=== PATIENT | female | born 1975 | race Caucasian/White ===

== ENCOUNTER 2016-11-27 21:53 | Emergency (ER) | payer MEDICAID ==
[2016-11-27 22:03] VITALS: BP 129/85; PULSE 67; RESP 16; TEMP 97.9; O2SAT 97
[2016-11-27] MEDS ORDERED: BACITRACIN OINTMENT 1 PACKET TP ONE (22:10)
--- NOTE | 2016-11-27 22:10 | EDPHY ---
H & P Stated Complaint: FB in base of right great toe Time Seen by Provider: 11/27/16 22:00 HPI/ROS: CHIEF COMPLAINT: Splinter HISTORY OF PRESENT ILLNESS: Patient is a 41-year-old female who comes to the emergency department complaining of a splinter that she got in her right foot while walking barefoot at work. She rubbed her foot on the carpet and something poked into her foot. She denies other injuries. REVIEW OF SYSTEMS: Constitutional: denies: chills, fever, recent illness, recent injury EENTM: denies: blurred vision, double vision, nose congestion Respiratory: denies: cough, shortness of breath Cardiac: denies: chest pain, irregular heart rate, lightheadedness, palpitations Gastrointestinal/Abdominal: denies: abdominal pain, diarrhea, nausea, vomiting, blood streaked stools Genitourinary: denies: dysuria, frequency, hematuria, pain Musculoskeletal: denies: joint pain, muscle pain Skin: See HPI Neurological: denies: headache, numbness, paresthesia, tingling, dizziness, weakness Hematologic/Lymphatic: denies: blood clots, easy bleeding, easy bruising Immunologic/allergic: denies: HIV/AIDS, transplant EXAM: GENERAL: Well-appearing, well-nourished and in no acute distress. HEAD: Atraumatic, normocephalic. EYES: Pupils equal round and reactive to light, extraocular movements intact, sclera anicteric, conjunctiva are normal. ENT: TMs normal, nares patent, oropharynx clear without exudates. Moist mucous membranes. NECK: Normal range of motion, supple without lymphadenopathy or JVD. LUNGS: Breath sounds clear to auscultation bilaterally and equal. No wheezes rales or rhonchi. HEART: Regular rate and rhythm without murmurs, rubs or gallops. ABDOMEN: Soft, nontender, normoactive bowel sounds. No guarding, no rebound. No masses appreciated. BACK: No CVA tenderness, no spinal tenderness, step-offs or deformities EXTREMITIES: Normal range of motion, no pitting or edema. No clubbing or cyanosis. NEUROLOGICAL: Cranial nerves II through XII grossly intact. Normal speech, normal gait. 5/5 strength, normal movement in all extremities, normal sensation PSYCH: Normal mood, normal affect. SKIN: Small splinter over the ball of right foot great toe. Source: Patient Exam Limitations: No limitations - Personal History LMP (Females 10-55): 8-14 Days Ago Tetanus Vaccine Date: 2014 - Medical/Surgical History Hx Asthma: No Hx Chronic Respiratory Disease: No Hx Diabetes: No Hx Cardiac Disease: No Hx Renal Disease: No Hx Cirrhosis: No Hx Alcoholism: No Hx HIV/AIDS: No Hx Splenectomy or Spleen Trauma: No Other PMH: med hx-cutaneous b cell lymphoma, anxiety - Family History Significant Family History: No pertinent family hx - Social History Smoking Status: Never smoked Alcohol Use: Sober Drug Use: None Constitutional: Initial Vital Signs Temperature (C) 36.6 C 11/27/16 22:00 Heart Rate 67 11/27/16 22:00 Respiratory Rate 16 11/27/16 22:00 Blood Pressure 129/85 H 11/27/16 22:00 O2 Sat (%) 97 11/27/16 22:00 O2 Delivery Mode Room Air Allergies/Adverse Reactions: metronidazole [From Metrogel Vaginal] Allergy (Severe, Verified 06/02/16 22:46) Anaphylaxis codeine [Codeine] Allergy (Intermediate, Verified 06/02/16 22:46) Hives aspirin Allergy (Mild, Verified 06/02/16 22:46) Rash Sulfa (Sulfonamide Antibiotics) Allergy (Mild, Verified 06/02/16 22:46) Rash cephalexin monohydrate [From Keflex] Allergy (Unknown, Verified 06/02/16 22:46) Penicillins Allergy (Unknown, Verified 06/02/16 22:46) Home Medications: Medication Instructions Recorded Hydrocortisone 2.5% 1 alex TP BID #50 ml 11/27/16 [Hydrocortisone 2.5% cream (*)] Medical Decision Making Procedures: Splinter removal: Patient refused local anesthesia. Her splinter was then removed with splinter forceps and an 18 gauge needle. She tolerated the procedure well. ED Course/Re-evaluation: Patient had a splinter that was successfully removed. Was then dressed with bacitracin and sterile bandages. Discussed further care. She is also requesting hydrocortisone 2% cream for her itchy skin. Differential Diagnosis: Partial list of the Differential diagnosis considered include but were not limited to; splinter, foreign body, infection and although unlikely based on the history and physical exam, I also considered trauma. I discussed these differential diagnoses and the plan with the patient as well as the usual and expected course. The patient understands that the diagnosis is provisional and that in medicine we are not always correct and that further workup is often warranted. Usual and customary warnings were given. All of the patient's questions were answered. The patient was instructed to return to the emergency department should the symptoms at all worsen or return, otherwise to followup with the physician as we discussed. Departure - Departure Disposition: Home, Routine, Self-Care Clinical Impression: Splinter in skin Condition: Fair Instructions: Soft Tissue Foreign Body (ED) Referrals: Glenys Chadwick DO [Primary Care Provider] - As per Instructions Prescriptions: Hydrocortisone 2.5% [Hydrocortisone 2.5% cream (*)] 1 alex TP BID #50 ml
== END 2016-11-27 22:19 | disposition home or self-care (01) ==
LOC: CED 21:53
DX: S90.851A Superficial foreign body, right foot, initial encounter (principal); W45.8XXA Other foreign body or object entering through skin, initial encounter; Y99.8 Other external cause status; Y93.01 Activity, walking, marching and hiking

== ENCOUNTER 2017-04-14 07:36 | Emergency (ER) | payer MEDICAID ==
[2017-04-14 07:45] VITALS: BP 129/78; PULSE 80; RESP 14; TEMP 98.6; O2SAT 97
--- NOTE | 2017-04-14 08:01 | EDPHY ---
H & P Stated Complaint: "pinching" abd pain since this am; off and on x wks; mild nausea Time Seen by Provider: 04/14/17 07:45 HPI/ROS: Chief Complaint: Abdominal pain HPI: 41-year-old woman woke this morning with 8/10 epigastric abdominal pain she has been having similar episodes for the past couple months occasionally. Patient states she went to the bathroom and passed gas and the pain resolved. Denies any nausea or vomiting. No fevers or chills. No urinary urgency or frequency. Does have a diagnosis of irritable bowel disease in the past. She has been trying to eliminate gluten from her diet. Currently states that she feels normal is without complaint. Last menstrual period was 1 week ago. She is . Has had a tubal ligation but no other abdominal surgeries. She did try to call her primary care doctor's office but they will be able to get her in for a few days. ROS: 10 point Review of Systems is negative except as noted in the HPI. PMH: Denies Social History: Occasional smoking, no alcohol, no recreational drug use Family History: non-contributory Physical Exam: Gen: Awake, Alert, No Distress HEENT: Ears: Normal Nose: no rhinorrhea Eyes: PERRLA, EOMI Mouth: Moist mucosa Neck: Supple, no JVD Chest: nontender, lungs clear to auscultation Heart: S1, S2 normal, no murmur Abd: Soft, non-tender, no guarding Back: no CVA tenderness, no midline tenderness Ext: no edema, non-tender Skin: no rash Neuro: CN II-XII intact, Sensation grossly intact, Strength 5/5 in bilateral upper and lower extremities - Personal History LMP (Females 10-55): 8-14 Days Ago Current Tetanus/Diphtheria Vaccine: Yes Tetanus Vaccine Date: 2014 - Medical/Surgical History Hx Asthma: No Hx Chronic Respiratory Disease: No Hx Diabetes: No Hx Cardiac Disease: No Hx Renal Disease: No Hx Cirrhosis: No Hx Alcoholism: No Hx HIV/AIDS: No Hx Splenectomy or Spleen Trauma: No Other PMH: med hx-cutaneous b cell lymphoma, anxiety - Social History Smoking Status: Never smoked Constitutional: Initial Vital Signs Temperature (C) 37 C 04/14/17 07:41 Heart Rate 80 04/14/17 07:41 Respiratory Rate 14 04/14/17 07:41 Blood Pressure 129/78 H 04/14/17 07:41 O2 Sat (%) 97 04/14/17 07:41 O2 Delivery Mode Room Air Allergies/Adverse Reactions: metronidazole [From Metrogel Vaginal] Allergy (Severe, Verified 04/14/17 07:46) Anaphylaxis codeine [Codeine] Allergy (Intermediate, Verified 04/14/17 07:46) Hives Sulfa (Sulfonamide Antibiotics) Allergy (Mild, Verified 04/14/17 07:46) Rash cephalexin monohydrate [From Keflex] Allergy (Unknown, Verified 04/14/17 07:46) Penicillins Allergy (Unknown, Verified 04/14/17 07:46) Home Medications: Medication Instructions Recorded NK [No Known Home Meds] 04/14/17 Medical Decision Making ED Course/Re-evaluation: 41-year-old with a brief episode of abdominal pain this morning. This resolved after she passed flatus. She has a soft benign abdomen at this time. She does not have any symptoms suggestive of pancreatitis, gallbladder disease, appendicitis, obstruction, or urinary tract infection. She is otherwise very well appearing. I do not feel that there is any imaging or laboratory tests indicated at this time. I have recommended that she follow up with primary care physician for further evaluation and 2-3 days. She will return should her pain come back. Departure - Departure Disposition: Home, Routine, Self-Care Clinical Impression: Abdominal pain Condition: Good Instructions: Gas and Bloating (ED), Abdominal Pain (ED) Additional Instructions: Follow up with primary care physician in 2-3 days for further evaluation. Return to the emergency depart for increasing abdominal pain, uncontrolled nausea vomiting, fevers, chills, or any other concerns. Referrals: [facility] [Other] - As per Instructions
== END 2017-04-14 08:05 | disposition home or self-care (01) ==
LOC: CED 07:36
DX: R10.9 Unspecified abdominal pain (principal)

== ENCOUNTER 2017-07-31 01:46 | Emergency (ER) | payer MEDICAID ==
[2017-07-31 02:00] VITALS: RESP 18
[2017-07-31] MEDS ORDERED: NS 1,000 ML IV ONE (02:11)
[2017-07-31] MEDS ORDERED: LORazepam 2 MG/ML INJ IVP ONE (02:12)
--- NOTE | 2017-07-31 02:17 | EDPHY ---
H & P Stated Complaint: Rapid Heart Rate/Poss Anxiety HPI/ROS: HPI CHIEF COMPLAINT: Anxiety, palpitations HISTORY OF PRESENT ILLNESS: This patient 41-year-old female she does have significant past medical history for B-cell lymphoma, additionally has a history of anxiety she presents emergency room at 2:15 a.m. In the morning with palpitations and anxiety. Patient reports she was trying to go to bed at 1:30 a.m. In the morning while brushing her teeth all the sudden she felt palpitations and lightheadedness. Denies chest pain or chest pressure. Denies she pleuritic pain. Denies vomiting nausea or diarrhea. Denies recent illness. She reports to me additionally that she felt lightheaded at lunch yesterday. She reports that she was eating lunch a and felt her heart racing with palpitations. At that time she felt lightheaded this lasted 5 min. She states she then burp and all of her symptoms went away. Currently arriving in the emergency room her vitals are stable. Blood pressure 120/73 HR 64, pulse ox 100% on room air. Past Medical History: B-cell lymphoma, anxiety Past Surgical History: Denies any recent surgery Social History: Denies daily use of drugs alcohol tobacco. Denies being on control. Family History: Noncontributory ROS REVIEW OF SYSTEMS: A comprehensive 10 point review of systems is otherwise negative aside from elements mentioned in the history of present illness. Exam Constitutional appears well nontoxic slightly anxious, triage nursing summary reviewed, vital signs reviewed, awake/alert. Eyes normal conjunctivae and sclera, EOMI, PERRLA. HENT normal inspection, atraumatic, moist mucus membranes, no epistaxis, neck supple/ no meningismus, no raccoon eyes. Respiratory clear to auscultation bilaterally, normal breath sounds, no respiratory distress, no wheezing. Cardiovascular rate normal, regular rhythm, no murmur, no edema, distal pulses normal. Gastrointestinal soft, non-tender, no rebound, no guarding, normal bowel sounds, no distension, no pulsatile mass. Genitourinary no CVA tenderness. Musculoskeletal no midline vertebral tenderness, full range of motion, no calf swelling, no tenderness of extremities, no meningismus, good pulses, neurovascularly intact. Skin pink, warm, & dry, no rash, skin atraumatic. Neurologic awake, alert and oriented x 3, AAOx3, moves all 4 extremities equally, motor intact, sensory intact, CN II-XII intact, normal cerebellar, normal vision, normal speech. Psychiatric somewhat anxious, normal mood/affect. Heme/Lymph/Immune no lymphadenopathy. Differential Diagnosis: Includes but is not limited to in a particular order acute anxiety, panic attack, electrolyte disturbance, thyroid problem, cardiac arrhythmia Medical Decision Making: Plan for this patient IV establishment blood draw, obtain EKG, check TSH, troponin, D-dimer, IV fluids 1 L normal saline, IV Ativan 1 mg for anxiety and re-evaluate. Re-evaluation: EKG interpretation by me on record in [facility] system. Impression time of EKG 2:16 a.m., this is sinus rhythm rate of 65 T-wave abnormality seen in V1 V2 otherwise no ST elevation no significant ST depression. Otherwise unremarkable EKG. Similar to previous EK04/27/16 0348: Patient re-evaluated is resting comfortably. She feels better after p.o. Ativan. Denies any chest pain or chest pressure shortness of breath or palpitations. She feels much better. She would like to go home. Patient states that she follow up with primary care doctor. Additionally I recommend she follows up with Cardiology for Holter monitor for palpitations. Additionally return precautions discussed with her she understands return emergency room if develops worsening abdominal pain fever chest pain shortness of breath palpitations questions or concerns. Source: Patient - Personal History LMP (Females 10-55): 15-21 Days Ago Current Tetanus/Diphtheria Vaccine: Yes Current Tetanus Diphtheria and Acellular Pertussis (TDAP): Yes Tetanus Vaccine Date: 2014 - Medical/Surgical History Hx Asthma: No Hx Chronic Respiratory Disease: No Hx Diabetes: No Hx Cardiac Disease: No Hx Renal Disease: No Hx Cirrhosis: No Hx Alcoholism: No Hx HIV/AIDS: No Hx Splenectomy or Spleen Trauma: No Other PMH: med hx-cutaneous b cell lymphoma, anxiety - Social History Smoking Status: Former smoker Constitutional: Initial Vital Signs Heart Rate 71 07/31/17 01:57 Respiratory Rate 18 07/31/17 01:57 Blood Pressure 128/84 H 07/31/17 01:57 O2 Sat (%) 99 07/31/17 01:57 O2 Delivery Mode Room Air Allergies/Adverse Reactions: metronidazole [From Metrogel Vaginal] Allergy (Severe, Verified 07/31/17 02:01) Anaphylaxis codeine [Codeine] Allergy (Intermediate, Verified 07/31/17 02:01) Hives Sulfa (Sulfonamide Antibiotics) Allergy (Mild, Verified 07/31/17 02:01) Rash cephalexin monohydrate [From Keflex] Allergy (Unknown, Verified 07/31/17 02:01) Penicillins Allergy (Unknown, Verified 07/31/17 02:01) Home Medications: Medication Instructions Recorded NK [No Known Home Meds] 04/14/17 Medical Decision Making - Data Points Laboratory Results: Laboratory Results 07/31/17 02:30 07/31/17 02:30 07/31/17 07/31/17 07/31/17 02:30 02:30 02:30 WBC RBC Hgb Hct MCV MCH MCHC RDW Plt Count MPV Neut % (Auto) Lymph % (Auto) [place] % (Auto) Eos % (Auto) Baso % (Auto) Nucleat RBC Rel Count Absolute Neuts (auto) Absolute Lymphs (auto) Absolute Monos (auto) Absolute Eos (auto) Absolute Basos (auto) Absolute Nucleated RBC Immature Gran % Immature Gran # PT INR APTT D-Dimer Sodium 141 mEq/L mEq/L (135-145) Potassium 4.2 mEq/L mEq/L (3.5-5.2) Chloride 102 mEq/L mEq/L (97-110) Carbon Dioxide 25 mEq/l mEq/l (22-31) Anion Gap 14 mEq/L mEq/L (8-16) BUN 10 mg/dL mg/dL (7-23) Creatinine 0.7 mg/dL mg/dL (0.6-1.0) Estimated GFR > 60 Glucose 80 mg/dL mg/dL (70-100) Calcium 9.4 mg/dL mg/dL (8.5-10.4) Magnesium 1.9 mg/dL mg/dL (1.6-2.3) Total Bilirubin 0.4 mg/dL mg/dL (0.1-1.4) Conjugated Bilirubin 0.2 mg/dL mg/dL (0.0-0.5) Unconjugated Bilirubin 0.2 mg/dL mg/dL (0.0-1.1) AST 22 IU/L IU/L (14-46) ALT 43 IU/L IU/L (9-52) Alkaline Phosphatase 45 IU/L IU/L (38-126) Creatine Kinase 67 IU/L IU/L (0-156) CK-MB (CK-2) Fraction 0.45 ng/mL ng/mL (0.00-4.55) Troponin I < 0.012 ng/mL ng/mL (0.000-0.034) NT-Pro-B Natriuret Pep 87 pg/mL pg/mL (0-125) Total Protein 7.4 g/dL g/dL (6.3-8.2) Albumin 4.1 g/dL g/dL (3.5-5.0) TSH 4.680 uIU/mL uIU/mL (0.465-4.680) Beta HCG, Qual NEGATIVE Urine Color YELLOW Urine Appearance CLEAR Urine pH 6.0 (5.0-7.5) Ur Specific [place] <= 1.005 (1.002-1.030) Urine Protein NEGATIVE (NEGATIVE) Urine Ketones NEGATIVE (NEGATIVE) Urine Blood NEGATIVE (NEGATIVE) Urine Nitrate NEGATIVE (NEGATIVE) Urine Bilirubin NEGATIVE (NEGATIVE) Urine Urobilinogen 0.2 EU EU (0.2-1.0) Ur Leukocyte Esterase NEGATIVE (NEGATIVE) Urine Glucose NEGATIVE (NEGATIVE) Urine Opiates Screen NEGATIVE (NEGATIVE) Urine Barbiturates NEGATIVE (NEGATIVE) Ur Phencyclidine Scrn NEGATIVE (NEGATIVE) Ur Amphetamine Screen NEGATIVE (NEGATIVE) U Benzodiazepines Scrn NEGATIVE (NEGATIVE) Urine Cocaine Screen NEGATIVE (NEGATIVE) U Marijuana (THC) Screen NEGATIVE (NEGATIVE) 07/31/17 07/31/17 02:30 02:30 WBC 5.84 10^3/uL 10^3/uL (3.80-9.50) RBC 4.52 10^6/uL 10^6/uL (4.18-5.33) Hgb 13.9 g/dL g/dL (12.6-16.3) Hct 40.6 % % (38.0-47.0) MCV 89.8 fL fL (81.5-99.8) MCH 30.8 pg pg (27.9-34.1) MCHC 34.2 g/dL g/dL (32.4-36.7) RDW 13.3 % % (11.5-15.2) Plt Count 242 10^3/uL 10^3/uL (150-400) MPV 11.6 fL fL (8.7-11.7) Neut % (Auto) 56.5 % % (39.3-74.2) Lymph % (Auto) 25.2 % % (15.0-45.0) [place] % (Auto) 11.1 % % (4.5-13.0) Eos % (Auto) 6.2 % % (0.6-7.6) Baso % (Auto) 0.7 % % (0.3-1.7) Nucleat RBC Rel Count 0.0 % % (0.0-0.2) Absolute Neuts (auto) 3.30 10^3/uL 10^3/uL (1.70-6.50) Absolute Lymphs (auto) 1.47 10^3/uL 10^3/uL (1.00-3.00) Absolute Monos (auto) 0.65 10^3/uL 10^3/uL (0.30-0.80) Absolute Eos (auto) 0.36 10^3/uL 10^3/uL (0.03-0.40) Absolute Basos (auto) 0.04 10^3/uL 10^3/uL (0.02-0.10) Absolute Nucleated RBC 0.00 10^3/uL 10^3/uL (0-0.01) Immature Gran % 0.3 % % (0.0-1.1) Immature Gran # 0.02 10^3/uL 10^3/uL (0.00-0.10) PT 13.2 SEC SEC (12.0-15.0) INR 1.01 (0.83-1.16) APTT 29.7 SEC SEC (23.0-38.0) D-Dimer < 0.27 ug/mLFEU ug/mLFEU (0.00-0.50) Sodium Potassium Chloride Carbon Dioxide Anion Gap BUN Creatinine Estimated GFR Glucose Calcium Magnesium Total Bilirubin Conjugated Bilirubin Unconjugated Bilirubin AST ALT Alkaline Phosphatase Creatine Kinase CK-MB (CK-2) Fraction Troponin I NT-Pro-B Natriuret Pep Total Protein Albumin TSH Beta HCG, Qual Urine Color Urine Appearance Urine pH Ur Specific [place] Urine Protein Urine Ketones Urine Blood Urine Nitrate Urine Bilirubin Urine Urobilinogen Ur Leukocyte Esterase Urine Glucose Urine Opiates Screen Urine Barbiturates Ur Phencyclidine Scrn Ur Amphetamine Screen U Benzodiazepines Scrn Urine Cocaine Screen U Marijuana (THC) Screen Medications Given: Discontinued Medications Sodium Chloride (Ns) 1,000 mls @ 0 mls/hr IV EDNOW ONE; Wide Open PRN Reason: Protocol Stop: 07/31/17 02:12 Last Admin: 07/31/17 02:47 Dose: 1,000 mls Lorazepam (Ativan Injection) 1 mg IVP EDNOW ONE Stop: 07/31/17 02:13 Last Admin: 07/31/17 03:07 Dose: Not Given Lorazepam (Ativan) 1 mg PO ONCE ONE Stop: 07/31/17 02:40 Last Admin: 07/31/17 02:54 Dose: Not Given Lorazepam (Ativan) 0.5 mg PO EDNOW ONE Stop: 07/31/17 02:42 Last Admin: 07/31/17 02:43 Dose: 0.5 mg Departure - Departure Disposition: Home, Routine, Self-Care Clinical Impression: Heart palpitations, Anxiety Condition: Good Instructions: Heart Palpitations (ED), Anxiety (ED) Additional Instructions: 1. Stay well-hydrated drink lots of fluids. 2. Return emergency room if you have worsening symptoms questions or concerns includes chest pain, shortness of breath, passing out 3. I do recommend he follow up with Cardiology to have a Holter monitor to evaluate your palpitations. Referrals: Patient,NotPresent [Primary Care Provider] - As per Instructions Bishnu Lane MD [Medical Doctor] - As per Instructions
--- NOTE | 2017-07-31 02:21 | CPEKG ---
Heart Rate: 65 RR Interval: 923 P-R Interval: 160 QRSD Interval: 80 QT Interval: 436 QTC Interval: 454 P [place]: 55 QRS [place]: 19 T Wave [place]: 31 EKG Severity - BORDERLINE ECG - EKG Impression: SINUS RHYTHM EKG Impression: CONSIDER ANTERIOR INFARCT Electronically Signed By: Diane Liang 31-Jul-2017 07:39:22
[2017-07-31 02:39] LABS: PLATELET COUNT 242 10^3/uL (150-400)
[2017-07-31] MEDS ORDERED: LORazepam 1 MG TAB PO ONE (02:39)
[2017-07-31] MEDS ORDERED: LORazepam 0.5 MG TAB ONE (02:40)
[2017-07-31] MEDS ORDERED: LORazepam 0.5 MG TAB PO ONE (02:41)
[2017-07-31 02:46] LABS: INR 1.01 (0.83-1.16); PROTIME(PATIENT) 13.2 SEC (12.0-15.0)
[2017-07-31 02:50] LABS: CREATINE KINASE 67 IU/L (0-156)
[2017-07-31 03:39] VITALS: BP 120/80; PULSE 72; TEMP 98.2; O2SAT 97
== END 2017-07-31 03:53 | disposition home or self-care (01) ==
LOC: CED 01:46
DX: F41.9 Anxiety disorder, unspecified (principal); R00.2 Palpitations; E86.9 Volume depletion, unspecified; Z87.891 Personal history of nicotine dependence
CPT/HCPCS: 71045-PO; 80048-PO; 80076-PO; 80307-PO; 81003-PO; 82550-PO; 82553-PO; 83735-PO; 83880-PO; 84443-PO; 84484-PO; 84703-PO; 85025-PO; 85378-PO; 85610-PO; 85730-PO

== ENCOUNTER 2017-08-21 01:49 | Emergency (ER) | payer MEDICAID ==
[2017-08-21 02:17] VITALS: BP 125/79; PULSE 63; RESP 14; TEMP 97.7; O2SAT 95
--- NOTE | 2017-08-21 02:29 | EDPHY ---
H & P Time Seen by Provider: 08/21/17 02:08 HPI/ROS: CC: throat pain HPI: This 41-year-old female presents to the emergency department tonight with complaints of a sore throat for the last 2 days. She describes it as achy and rates it at 7/10. She has not tried anything except saltwater rinses. She has had mild nausea. She denies fever, chills, ear pain, cough, chest pain, abdominal pain, rash. She has had some postnasal drip. She just came back from [place] and her friend was sick but she states he told her it was allergies. REVIEW OF SYSTEMS: Constitutional: No fever, no chills. Eyes: No discharge. ENT: See HPI. Respiratory: No cough, no shortness of breath. Cardiac: No chest pain, no palpitations. Gastrointestinal: No abdominal pain, no vomiting. Genitourinary: No hematuria. Musculoskeletal: No back pain. Skin: No rashes. Neurological: No headache. Past Medical/Surgical History: Past medical history is denied by the patient despite a problem list in the computer including cutaneous T-cell lymphoma when questioned about this she states "Oh yeah, I had a little bit of that on my arm." Past surgical history denied Family history includes father dying from colon cancer, mother alive with a thyroid disorder Allergies include metronidazole, sulfa, penicillin, Keflex, and codeine Medications: None Social History: On and off smoker for the last few years. Prior to that she states she smoked regularly for a number of years. She denies other tobacco products, alcohol use or marijuana use. Smoking Status: Former smoker Physical Exam: General Appearance: Alert, no distress. Eyes: Pupils equal and round no pallor or injection. ENT, Mouth: No drainage noted in nares. No sinus tenderness. Mucous membranes are moist. Mild erythema without exudate. No intraoral ulcerations. Uvula midline. TMs clear bilaterally. Respiratory: There are no retractions, lungs are clear to auscultation. Cardiovascular: Regular rate and rhythm. Gastrointestinal: Abdomen is soft and nontender. Neurological: Awake and alert, sensory and motor exams grossly normal. Skin: Warm and dry, no rashes. Musculoskeletal: Neck is supple nontender. Extremities are symmetrical, full range of motion. Psychiatric: Patient is oriented X 3, there is no agitation. DIFFERENTIAL DIAGNOSIS: After history and physical exam differential diagnosis was considered for [viral pharyngitis, strep pharyngitis, unlikely retropharyngeal abscess, unlikely mononucleosis] Constitutional: Initial Vital Signs Temperature (C) 97.7 F 08/21/17 02:15 Heart Rate 63 08/21/17 02:15 Respiratory Rate 14 08/21/17 02:15 Blood Pressure 125/79 H 08/21/17 02:15 O2 Sat (%) 95 08/21/17 02:15 O2 Delivery Mode Room Air Allergies/Adverse Reactions: metronidazole [From Metrogel Vaginal] Allergy (Severe, Verified 08/21/17 02:14) Anaphylaxis codeine [Codeine] Allergy (Intermediate, Verified 08/21/17 02:14) Hives Sulfa (Sulfonamide Antibiotics) Allergy (Mild, Verified 08/21/17 02:14) Rash cephalexin monohydrate [From Keflex] Allergy (Unknown, Verified 08/21/17 02:14) Penicillins Allergy (Unknown, Verified 08/21/17 02:14) Home Medications: Medication Instructions Recorded NK [No Known Home Meds] 08/21/17 Medical Decision Making ED Course/Re-evaluation: The patient was seen and examined. Vital signs reviewed. The patient is afebrile. Prior records reviewed. A rapid strep was performed and was negative. The patient declined an oral dose of Decadron or ibuprofen. She states she will continue salt water gargles and take her own ibuprofen at home. She will follow up with her primary care provider if symptoms persist or return to the emergency room sooner if symptoms worsen as discussed. - Data Points Laboratory Results: 08/21/17 08/21/17 Unknown 01:54 Group A Strep Screen NEGATIVE (NEGATIVE) Group A Strep DNA Pending Departure - Departure Disposition: Home, Routine, Self-Care Clinical Impression: Acute pharyngitis Qualifiers: Pharyngitis/tonsillitis etiology: unspecified etiology Qualified Code(s): J02.9 - Acute pharyngitis, unspecified Condition: Good Instructions: Pharyngitis (ED) Additional Instructions: Follow up with your primary care provider if symptoms persist. You may return to the ER if symptoms worsen (swelling, difficulty swallowing, rash, neck stiffness etc.). Referrals: [facility],. [Clinic] - Follow Up Only If Needed
[2017-08-21] MEDS ORDERED: DEXAMETHASONE 4 MG TAB PO ONE (02:47)
== END 2017-08-21 03:02 | disposition home or self-care (01) ==
LOC: CED 01:49
DX: J02.9 Acute pharyngitis, unspecified (principal); Z87.891 Personal history of nicotine dependence
CPT/HCPCS: 87880-PO

== ENCOUNTER 2017-12-26 21:56 | Emergency (ER) | payer MEDICAID ==
[2017-12-26 22:06] VITALS: BP 138/83
--- NOTE | 2017-12-26 22:11 | EDPHY ---
H & P Stated Complaint: c/o body rash since yesterday and anxiety since 1700 today Time Seen by Provider: 12/26/17 22:04 HPI/ROS: CHIEF COMPLAINT: Rash HISTORY OF PRESENT ILLNESS: The patient is a 42-year-old female who comes to the emergency department stating that she developed a sandpapery red rash throughout her torso over the last 24 hr. She states that this is very typical for when she has viral infections. She has not had a fever. No headache or stiff neck. No shortness of breath or chest pain. She has felt slightly nauseous but no vomiting. No diarrhea. No sore throat. REVIEW OF SYSTEMS: Constitutional: denies: chills, fever, recent illness, recent injury EENTM: denies: blurred vision, double vision, nose congestion Respiratory: denies: cough, shortness of breath Cardiac: denies: chest pain, irregular heart rate, lightheadedness, palpitations Gastrointestinal/Abdominal: denies: abdominal pain, diarrhea, nausea, vomiting, blood streaked stools Genitourinary: denies: dysuria, frequency, hematuria, pain Musculoskeletal: denies: joint pain, muscle pain Skin: See HPI Neurological: denies: headache, numbness, paresthesia, tingling, dizziness, weakness Hematologic/Lymphatic: denies: blood clots, easy bleeding, easy bruising Immunologic/allergic: denies: HIV/AIDS, transplant EXAM: GENERAL: Well-appearing, well-nourished and in no acute distress. HEAD: Atraumatic, normocephalic. EYES: Pupils equal round and reactive to light, extraocular movements intact, sclera anicteric, conjunctiva are normal. ENT: TMs normal, nares patent, oropharynx clear without exudates. Slightly dry mucous membranes. NECK: Normal range of motion, supple without lymphadenopathy or JVD. LUNGS: Breath sounds clear to auscultation bilaterally and equal. No wheezes rales or rhonchi. HEART: Regular rate and rhythm without murmurs, rubs or gallops. ABDOMEN: Soft, nontender, normoactive bowel sounds. No guarding, no rebound. No masses appreciated. BACK: No CVA tenderness, no spinal tenderness, step-offs or deformities EXTREMITIES: Normal range of motion, no pitting or edema. No clubbing or cyanosis. NEUROLOGICAL: Cranial nerves II through XII grossly intact. Normal speech, normal gait. 5/5 strength, normal movement in all extremities, normal sensation PSYCH: Normal mood, normal affect. SKIN: Diffuse sandpapery rash, no vesicles. No hives. No petechiae or bruising Source: Patient Exam Limitations: No limitations - Personal History LMP (Females 10-55): Now Tetanus Vaccine Date: 2014 - Medical/Surgical History Hx Asthma: No Hx Chronic Respiratory Disease: No Hx Diabetes: No Hx Cardiac Disease: No Hx Renal Disease: No Hx Cirrhosis: No Hx Alcoholism: No Hx HIV/AIDS: No Hx Splenectomy or Spleen Trauma: No Other PMH: med hx-cutaneous b cell lymphoma, anxiety - Family History Significant Family History: No pertinent family hx - Social History Smoking Status: Former smoker Alcohol Use: Sober Drug Use: None Constitutional: Initial Vital Signs Temperature (C) 36.6 C 12/26/17 22:05 Heart Rate 77 12/26/17 22:05 Respiratory Rate 18 12/26/17 22:05 Blood Pressure 138/83 H 12/26/17 22:05 O2 Sat (%) 97 12/26/17 22:05 O2 Delivery Mode Room Air Allergies/Adverse Reactions: metronidazole [From Metrogel Vaginal] Allergy (Severe, Verified 08/21/17 02:14) Anaphylaxis codeine [Codeine] Allergy (Intermediate, Verified 08/21/17 02:14) Hives Sulfa (Sulfonamide Antibiotics) Allergy (Mild, Verified 08/21/17 02:14) Rash cephalexin monohydrate [From Keflex] Allergy (Unknown, Verified 08/21/17 02:14) Penicillins Allergy (Unknown, Verified 08/21/17 02:14) Home Medications: Medication Instructions Recorded NK [No Known Home Meds] 08/21/17 Medical Decision Making ED Course/Re-evaluation: Patient has some mild rash consistent with a viral exanthem. She states that she has had many of these before and that this seems similar. She was reading online however about meningitis and became concerned. She does not have a headache or stiff neck or fever. Her rash is not petechial. She feels reassured and is eager to go home. She will accept Benadryl. Differential Diagnosis: Partial list of the Differential diagnosis considered include but were not limited to; viral sent thumb, urticaria and although unlikely based on the history and physical exam, I also considered meningitis, sepsis, cellulitis, [place] spotted fever, burn. I discussed these differential diagnoses and the plan with the patient as well as the usual and expected course. The patient understands that the diagnosis is provisional and that in medicine we are not always correct and that further workup is often warranted. Usual and customary warnings were given. All of the patient's questions were answered. The patient was instructed to return to the emergency department should the symptoms at all worsen or return, otherwise to followup with the physician as we discussed. - Data Points Medications Given: Discontinued Medications Diphenhydramine HCl (Benadryl) 50 mg PO EDNOW ONE Stop: 12/26/17 22:13 Last Admin: 12/26/17 22:18 Dose: 50 mg Departure - Departure Disposition: Home, Routine, Self-Care Clinical Impression: Viral exanthem, unspecified Condition: Fair Instructions: Viral Exanthem (ED) Additional Instructions: Take Benadryl every 6 hr as needed Referrals: Chris Burns MD [[facility] [place] Primary Care Provider] - As per Instructions
[2017-12-26] MEDS ORDERED: diphenhydrAMINE 25 MG CAP PO ONE (22:12)
== END 2017-12-26 22:26 | disposition home or self-care (01) ==
LOC: CED 21:56
DX: B09 Unspecified viral infection characterized by skin and mucous membrane lesions (principal); Z87.891 Personal history of nicotine dependence

== ENCOUNTER 2018-06-17 10:02 | Emergency (ER) | payer MEDICAID, OTHER ==
--- NOTE | 2018-06-17 10:42 | EDPHY ---
H & P Time Seen by Provider: 06/17/18 10:06 HPI/ROS: CHIEF COMPLAINT: Bleeding in left eye History by patient HISTORY OF PRESENT ILLNESS: 42-year-old otherwise healthy woman presents complaining of area of bleeding in the white of her eye which she 1st noticed last night. Patient denies any trauma, coughing or other precipitating event. It is nonpainful, although she says her eye feels slightly"irritated". It is not affected her vision. She has never had this before. She is a smoker. REVIEW OF SYSTEMS: As in HPI, and all other systems reviewed and are negative Smoking Status: Former smoker Physical Exam: General: Alert, well-appearing, slightly anxious Head: Normocephalic, atraumatic EOMI Pupils: Equal round reactive to light Lids: Clear without lesion Conjunctiva: Positive subconjunctival hemorrhage on the left lateral eye, positive limbic sparing Slit-lamp exam: Cornea clear, fluorescein negative, anterior chamber deep and clear Constitutional: Initial Vital Signs Temperature (C) 36.5 C 06/17/18 10:07 Heart Rate 65 06/17/18 10:07 Respiratory Rate 18 06/17/18 10:07 O2 Sat (%) 95 06/17/18 10:07 O2 Delivery Mode Room Air Allergies/Adverse Reactions: metronidazole [From Metrogel Vaginal] Allergy (Severe, Verified 06/17/18 10:07) Anaphylaxis codeine [Codeine] Allergy (Intermediate, Verified 06/17/18 10:07) Hives Sulfa (Sulfonamide Antibiotics) Allergy (Mild, Verified 06/17/18 10:07) Rash cephalexin monohydrate [From Keflex] Allergy (Unknown, Verified 06/17/18 10:07) Penicillins Allergy (Unknown, Verified 06/17/18 10:07) Home Medications: Medication Instructions Recorded NK [No Known Home Meds] 08/21/17 MDM/Departure - [facility] ED Course/Re-evaluation: 42-year-old woman presents with subconjunctival hemorrhage on the left eye without evidence of visual impairment or serious condition. Patient was given reassurance and discharged home in stable condition. - Depart Disposition: Home, Routine, Self-Care Clinical Impression: Subconjunctival hemorrhage of left eye Clinical Impression: (Ruled Out): Scleral hemorrhage of left eye Condition: Good Instructions: Subconjunctival Hemorrhage (ED) Additional Instructions: You were seen by Dr. Eva Stahl today. You have a subconjunctival hemorrhage. This is a small amount of spontaneous bleeding near the surface of URI and is not dangers. There is no evidence of corneal abrasion or any other serious eye condition. This will resolve on its own. Return for any worsening or new concerns.
[2018-06-17 11:07] VITALS: BP 120/75
== END 2018-06-17 10:53 | disposition home or self-care (01) ==
LOC: CED 10:02
DX: H57.89 Other specified disorders of eye and adnexa (principal)
CPT/HCPCS: 99282-ER

== ENCOUNTER 2018-08-22 10:55 | Emergency (ER) | payer MEDICAID, OTHER ==
[2018-08-22 11:04] VITALS: BP 130/77
--- NOTE | 2018-08-22 11:13 | EDPHY ---
H & P Stated Complaint: Body aches associated with nicotine Time Seen by Provider: 08/22/18 11:12 HPI/ROS: CHIEF COMPLAINT: Intermittent body aches, headaches HISTORY OF PRESENT ILLNESS: The patient is a 42-year-old female who comes to the emergency department complaining of intermittent body aches and headache as well as an episode of coughing yesterday. No chest pain or shortness of breath. No fever. No abdominal pain. She denies risk of . No urinary symptoms. No vaginal symptoms. No rash. She states that her symptoms seem to correlate with when she uses nicotine gum. She had been using it for many years but then stopped an now occasionally uses it again. She states that she does not have the symptoms when she is not using the nicotine. Severity: Resolved Modifying factors: See above REVIEW OF SYSTEMS: Constitutional: denies: chills, fever, recent illness, recent injury EENTM: denies: blurred vision, double vision, nose congestion Respiratory: denies: cough, shortness of breath Cardiac: denies: chest pain, irregular heart rate, lightheadedness, palpitations Gastrointestinal/Abdominal: denies: abdominal pain, diarrhea, nausea, vomiting, blood streaked stools Genitourinary: denies: dysuria, frequency, hematuria, pain Musculoskeletal: See HPI Skin: denies: lesions, rash, jaundice, bruising Neurological: denies: headache, numbness, paresthesia, tingling, dizziness, weakness Hematologic/Lymphatic: denies: blood clots, easy bleeding, easy bruising Immunologic/allergic: denies: HIV/AIDS, transplant 10 systems reviewed and negative except as noted EXAM: GENERAL: Well-appearing, well-nourished and in no acute distress. HEAD: Atraumatic, normocephalic. EYES: Pupils equal round and reactive to light, extraocular movements intact, sclera anicteric, conjunctiva are normal. ENT: TMs normal, nares patent, oropharynx clear without exudates. Moist mucous membranes. NECK: Normal range of motion, supple without lymphadenopathy or JVD. LUNGS: Breath sounds clear to auscultation bilaterally and equal. No wheezes rales or rhonchi. HEART: Regular rate and rhythm without murmurs, rubs or gallops. ABDOMEN: Soft, nontender, normoactive bowel sounds. No guarding, no rebound. No masses appreciated. BACK: No CVA tenderness, no spinal tenderness, step-offs or deformities EXTREMITIES: Normal range of motion, no pitting or edema. No clubbing or cyanosis. NEUROLOGICAL: Cranial nerves II through XII grossly intact. Normal speech, normal gait. 5/5 strength, normal movement in all extremities, normal sensation , normal reflexes PSYCH: Normal mood, normal affect. SKIN: Warm, dry, normal turgor, no visible rashes or lesions. Source: Patient Exam Limitations: No limitations - Personal History LMP (Females 10-55): 22-28 Days Ago Current Tetanus Diphtheria and Acellular Pertussis (TDAP): Yes Tetanus Vaccine Date: 2014 - Medical/Surgical History Hx Asthma: No Hx Chronic Respiratory Disease: No Hx Diabetes: No Hx Cardiac Disease: No Hx Renal Disease: No Hx Cirrhosis: No Hx Alcoholism: No Hx HIV/AIDS: No Hx Splenectomy or Spleen Trauma: No Other PMH: med hx-cutaneous b cell lymphoma, anxiety - Family History Significant Family History: No pertinent family hx - Social History Smoking Status: Light smoker Alcohol Use: None Constitutional: Initial Vital Signs Temperature (C) 36.8 C 08/22/18 11:02 Heart Rate 73 08/22/18 11:02 Respiratory Rate 16 08/22/18 11:02 Blood Pressure 130/77 H 08/22/18 11:02 O2 Sat (%) 95 08/22/18 11:02 O2 Delivery Mode Room Air Allergies/Adverse Reactions: cephalexin monohydrate [From Keflex] Allergy (Verified 08/22/18 11:05) Pt unsure of reaction codeine [Codeine] Allergy (Verified 08/22/18 11:05) Pt unsure of reaction metronidazole [From Metrogel Vaginal] Allergy (Verified 08/22/18 11:05) Pt reports Anaphylaxis and scratchy throat Penicillins Allergy (Verified 08/22/18 11:05) Pt unsure of reaction Sulfa (Sulfonamide Antibiotics) Allergy (Verified 08/22/18 11:05) Pt unsure of reaction Home Medications: Medication Instructions Recorded NK [No Known Home Meds] 08/21/17 Medical Decision Making ED Course/Re-evaluation: Patient is currently asymptomatic and has no abnormal exam findings. She noticed a strong correlation between her symptoms and when she chews nicotine gum. Or I did offer blood work and testing to evaluate for rhabdo, electrolyte abnormalities etc. She declines this and states that she would prefer to simply stop using the nicotine and follow up with her primary. We did discuss the possibility of fibromyalgia, autoimmune disease etc. She will pursue rheumatologic type testing if her symptoms do not improve after stopping nicotine altogether. Discussed indications for returning. Differential Diagnosis: Partial list of the Differential diagnosis considered include but were not limited to; nicotine reaction, allergy, rhabdomyolysis, fibromyalgia and although unlikely based on the history and physical exam, I also considered lupus, sepsis, meningitis. I discussed these differential diagnoses and the plan with the patient as well as the usual and expected course. The patient understands that the diagnosis is provisional and that in medicine we are not always correct and that further workup is often warranted. Usual and customary warnings were given. All of the patient's questions were answered. The patient was instructed to return to the emergency department should the symptoms at all worsen or return, otherwise to followup with the physician as we discussed. Departure - Departure Disposition: Home, Routine, Self-Care Clinical Impression: Nicotine dependence in remission Qualifiers: Nicotine product type: other Qualified Code(s): F17.291 - Nicotine dependence, other tobacco product, in remission Condition: Fair Instructions: How to Stop Smoking (ED) Referrals: Bishnu Hurt [Non Staff Provider (MD)] - 2-3 days, if not improved
== END 2018-08-22 11:23 | disposition home or self-care (01) ==
LOC: CED 10:55
DX: R51 Headache (principal); M79.10 Myalgia, unspecified site; R05 Cough; F17.291 Nicotine dependence, other tobacco product, in remission
CPT/HCPCS: 99282-ER